=== PATIENT | male | born 1995 | race Caucasian/White ===

== ENCOUNTER 2019-03-08 22:26 | Emergency (ER) | payer MEDICAID ==
[~2019-03-08] VITALS: Ht 175.3 cm; Wt 70.8 kg
[2019-03-08 23:00] VITALS: BP 139/85
--- NOTE | 2019-03-08 23:00 | NUR ---
"BIB FAMILY C/O SORE THROAT X10 DAYS. PT WAS SEEN AT [facility] YESTERDAY, AND WAS SEEN AT [facility] ON 03/06/19" PT TO BED 7, PT AWAKE, ALERT, -SOB, NAD NOTED, VSS ,PENDING MD DIXON
[2019-03-08] MEDS ORDERED: LIDOCAINE VISCOUS 2% UD 15 ML UDC ONE (23:28)
[2019-03-08] MEDS ORDERED: HYDROCODONE/APAP 10/325MG 1 EA TABLET ONE (23:28)
[2019-03-08] MEDS ORDERED: IBUPROFEN 600 MG TABLET PO ONE (23:28)
[2019-03-08] MEDS ORDERED: AMOXICILLIN TRIHYDRATE 250 MG CAPSULE ONE (23:28)
[2019-03-08] MEDS ORDERED: IBUPROFEN 400 MG TABLET PO ONE (23:30)
[2019-03-08] MEDS ORDERED: AMOXICILLIN TRIHYDRATE 250 MG CAPSULE PO ONE (23:30)
[2019-03-08] MEDS ORDERED: LIDOCAINE VISCOUS 2% UD 15 ML UDC MM ONE (23:30)
[2019-03-08] MEDS ORDERED: HYDROCODONE/APAP 10/325MG 1 EA TABLET PO ONE (23:30)
--- NOTE | 2019-03-08 23:41 | NUR ---
PT REFUSED ALL MEDS ORDERS BY PAM ALVAREZ, PER MOTHER SHE STATES THAT THEY WENT TO URGENT CARE AND WAITING FOR RESULTS FOR MONO, PT AND MOTHER REFUSING MEDS STATING THAT THEY DONT WANT TO TAKE ATB. THEY JUST WANT AN IV. TOLD PT AND MOTHER THAT THEY JUST WANT AN IV, PER PA SHE IS NOT GIVING ANY IV FLUIDS AT THIS TIME. PT STARTED ACTING UP AND BANGING ON DOORS AND SIGNALING TO HIS MOM HE WANTS TO LEAVE. PT AND MOTHER DID NOT WANT TO WAIT FOR PAPERS, PAM ALVAREZ AWARE. PT ELOPED FROM EMERGENCY ROOM.
== END 2019-03-08 23:46 | disposition left against medical advice (07) ==
LOC: ER 22:30
DX: J02.0 Streptococcal pharyngitis (principal)